=== PATIENT | male | born 1985 | race Caucasian/White ===

== ENCOUNTER 2017-08-27 23:19 | Emergency (ER) | payer BC ==
[~2017-08-27] VITALS: Ht 170.2 cm; Wt 102.0 kg
[2017-08-27 23:49] VITALS: BP 132/67; PULSE 110; RESP 20; TEMP 100.2; O2SAT 98
[2017-08-27] MEDS ORDERED: JANU50TA8 PO (23:56)
[2017-08-28] MEDS ORDERED: ZITHTAB PO (03:18)
[2017-08-28] MEDS ORDERED: ALBU6.7H INH (03:18)
[2017-08-28 03:21] VITALS: BP 131/86; PULSE 100; RESP 20; O2SAT 97
--- NOTE | 2017-08-28 03:24 | PD ---
HPI Chief Complaint: Cold / Flu Symptoms Time Seen by Provider: 03:14 Travel History International Travel<30 days: No Contact w/Intl Traveler<30days: No Traveled to known affect area: No History of Present Illness HPI 32-year-old white male presents emergency department with a 2 day history of cough, congestion. The patient admits to subjective fever and chills, runny nose, greenish brown sputum with slight blood tinge, myalgias, arthralgias and general malaise. He denies any nausea vomiting. No abdominal pain or diarrhea. No dysuria or frequency. Patient is visiting from [place] for bike week. He does not drink or smoke. PFS Past Medical History Narrative Medical Diabetes Diabetes: Yes Patient Takes Glucophage: No Tetanus Vaccination: < 5 Years Influenza Vaccination: Yes Past Surgical History Surgical History: No Previous Surgery Social History Alcohol Use: Yes (socially rarely) Tobacco Use: No Substance Use: No Allergies-Medications (Allergen,Severity, Reaction): Coded Allergies: No Known Drug Allergies (Verified Allergy, Unknown, 08/27/17) Reported Meds & Prescriptions Reported Meds & Active Scripts Active Proventil Hfa 6.7 GM Inh (Albuterol Sulfate) 90 Mcg/Act Aer 2 Puff INH Q4-6H PRN Zithromax Z-Teodoro (Azithromycin) 250 Mg Dspk 250 Mg PO DIRECTED 500 MG (2 tabs) day 1, then 1 tab days 2-5. Reported Janumet (Sitagliptin-Metformin) 50-1,000 Mg Tab 1 Tab PO DAILY Review of Systems Except as stated in HPI: all other systems reviewed are Neg Physical Exam Narrative GENERAL: Well-developed, well-nourished in no acute distress. Nontoxic appearing. HEAD: Normocephalic, atraumatic. EYES: Pupils equal round and reactive. Extraocular motions intact. No scleral icterus. No injection or drainage. ENT: TMs clear without erythema. The external auditory canals clear. Nose: clear . Posterior pharynx is pink and moist. No tonsillar edema or exudate. Uvula midline. Airway patent. NECK: Trachea midline.Supple, nontender, moves head freely. No central bony tenderness or spasm. CARDIOVASCULAR: Regular rate and rhythm without murmurs, gallops, or rubs. RESPIRATORY: Few rhonchi with fine expiratory wheeze. danitza-splenomegaly, or palpable masses. No guarding. EXTREMITIES: No clubbing, cyanosis, or edema. No joint tenderness, effusion, or edema noted. BACK: Nontender without deformity or crepitance. No flank tenderness. Data Data Last Documented VS Vital Signs Date Time Temp Pulse Resp B/P (MAP) Pulse Ox O2 Delivery O2 Flow Rate FiO2 08/27/17 23:49 100.2 110 20 132/67 (88) 98 Orders Orders Blood Glucose (08/28/17 03:17) Azithromycin (Zithromax) (08/28/17 03:30) MDM Medical Decision Making Medical Screen Exam Complete: Yes Emergency Medical Condition: Yes Medical Record Reviewed: Yes Differential Diagnosis MDM: High Differential diagnoses: Pneumonia, bronchitis, URI, asthma, RAD, influenza Narrative Course Patient is given Zithromax 500 mg p.o. BGL This is bronchitis, reactive airway disease Diagnosis Primary Impression: Bronchitis Additional Impression: Reactive airway disease Patient Instructions: General Instructions Additional Instructions: Rest. Increase fluids. Tylenol and Advil. Sugar-free cough medicine. Zithromax and albuterol. Followup with your Dr. in one week. Return to the ER for any problems. Med/Other Pt SpecificInfo: Prescription(s) given Scripts Albuterol 6.7 GM Inh (Proventil Hfa 6.7 GM Inh) 90 Mcg/Act Aer 2 PUFF INH Q4-6H Y for SHORTNESS OF BREATH, #1 INHALER 0 Refills Prov: ArabellaElenita DO 08/28/17 Azithromycin (Zithromax Z-Teodoro) 250 Mg Dspk 250 MG PO DIRECTED for Infection, #1 DSPK 0 Refills 500 MG (2 tabs) day 1, then 1 tab days 2-5. Prov: ArabellaElenita DO 08/28/17 Disposition: 01 DISCHARGE HOME Condition: Stable Manish Thomas Aug 28, 2017 03:24
[2017-08-28] MEDS ORDERED: AZITHROMYCIN 250 MG TAB PO ONE (03:30)
== END 2017-08-28 03:50 | disposition home or self-care (01) ==
LOC: NEPD 23:19
DX: J45.909 Unspecified asthma, uncomplicated (principal); E11.9 Type 2 diabetes mellitus without complications; Z79.899 Other long term (current) drug therapy
CPT/HCPCS: 99283